=== PATIENT | female | born 1975 | race Caucasian/White ===

== ENCOUNTER 2023-01-22 08:28 | Outpatient (CLI) | payer SELFPAY ==
[2023-01-22 08:49] LABS: BASOPHILS % (AUTO) 0.3 %; EOSINOPHILS # (AUTO) 0.3 10^3/uL (0.0-0.7); EOSINOPHILS % (AUTO) 5.2 %; HCT - HEMATOCRIT 39.4 % (37.0-47.0); HGB - HEMOGLOBIN 12.6 g/dL (12.0-16.0); LYMPHOCYTES # (AUTO) 1.2 10^3/uL (1.5-3.5); LYMPHOCYTES % (AUTO) 19.3 %; MEAN CORPUSCULAR HEMOGLOBIN 29.2 pg (27.0-31.0); MEAN CORPUSCULAR VOLUME 91.2 fL (81.0-99.0); MEAN PLATELET VOLUME 9.6 fL (7.9-10.8); MONOCYTES # (AUTO) 0.5 10^3/uL (0.0-1.0); MONOCYTES % (AUTO) 7.5 %; NEUTROPHILS # (AUTO) 4.3 10^3/uL (1.5-6.6); NEUTROPHILS % (AUTO) 67.4 %; PLT - PLATELET COUNT 255 10^3/uL (130-450); RED BLOOD COUNT 4.32 10^6/uL (4.20-5.40); RED CELL DISTRIBUTION WIDTH 11.9 % (12.0-15.0); WHITE BLOOD COUNT 6.4 x10^3/uL (4.8-10.8)
[2023-01-22 09:17] LABS: ALBUMIN 3.7 g/dL (3.2-5.5); ALBUMIN/GLOBULIN RATIO 0.9 (1.0-2.2); BILIRUBIN,TOTAL 0.7 mg/dL (0.2-1.0); CALCIUM 8.5 mg/dL (8.5-10.3); CREATININE 0.6 mg/dL (0.4-1.0); POTASSIUM 3.9 mmol/L (3.5-5.0); TOTAL PROTEIN 7.9 g/dL (6.7-8.2)
[2023-01-22 09:28] LABS: THYROID STIMULATING HORMONE < 0.08 uIU/mL (0.34-5.60)
[2023-01-22 09:31] LABS: FREE T4 (FREE THYROXINE) 1.38 ng/dL (0.58-1.64)
[2023-01-22 09:35] LABS: FERRITIN 103.4 ng/mL (11.0-306.8)
[2023-01-22 10:11] LABS: ESTIMATED AVERAGE GLUCOSE 151 mg/dL (70-100); HEMOGLOBIN A1c% 6.9 % (4.27-6.07)
[2023-01-24 11:10] LABS: HDL-P (TOTAL) 31.6 umol/L (>=30.5); LDL SIZE 20.9 nm (>20.5); LDL-P 787 nmol/L (<1000); LP-INSULIN RESISTANCE SCORE 36 (<=45); SMALL LDL-P 483 nmol/L (<=527)
== END 2023-01-22 08:29 | disposition home or self-care (01) ==
LOC: LAB 08:28
PROVIDERS: ATTEND Surgery
DX: I10 Essential (primary) hypertension (principal); E06.3 Autoimmune thyroiditis; E11.9 Type 2 diabetes mellitus without complications; K76.0 Fatty (change of) liver, not elsewhere classified; E78.5 Hyperlipidemia, unspecified; Z79.51 Long term (current) use of inhaled steroids; E03.9 Hypothyroidism, unspecified; F32.A Depression, unspecified; Z85.850 Personal history of malignant neoplasm of thyroid
CPT/HCPCS: 36415; 80053; 82306; 82607; 82728; 83036; 83525; 83540; 83704; 84439; 84443; 84466; 85025

== ENCOUNTER 2023-02-19 16:49 | Emergency (ER) | payer BC ==
[2023-02-19 17:35] LABS: BASOPHILS % (AUTO) 0.4 %; EOSINOPHILS # (AUTO) 0.3 10^3/uL (0.0-0.7); EOSINOPHILS % (AUTO) 4.5 %; HCT - HEMATOCRIT 37.5 % (37.0-47.0); HGB - HEMOGLOBIN 12.3 g/dL (12.0-16.0); LYMPHOCYTES # (AUTO) 1.8 10^3/uL (1.5-3.5); MEAN CORPUSCULAR HEMOGLOBIN 29.2 pg (27.0-31.0); MEAN CORPUSCULAR HGB CONC 32.8 g/dL (32.0-36.0); MEAN CORPUSCULAR VOLUME 89.1 fL (81.0-99.0); MEAN PLATELET VOLUME 9.5 fL (7.9-10.8); MONOCYTES # (AUTO) 0.6 10^3/uL (0.0-1.0); MONOCYTES % (AUTO) 7.4 %; NEUTROPHILS # (AUTO) 4.9 10^3/uL (1.5-6.6); NEUTROPHILS % (AUTO) 64.4 %; PLT - PLATELET COUNT 299 10^3/uL (130-450); RED BLOOD COUNT 4.21 10^6/uL (4.20-5.40); WHITE BLOOD COUNT 7.6 x10^3/uL (4.8-10.8)
--- NOTE | 2023-02-19 17:39 | ED Physician Documentation ---
History of Present Illness - Stated complaint Stated Complaint: SOA - Chief complaint Chief Complaint: Cardiac - Additonal information Additional information: 47-year-old female was referred to the emergency department for evaluation of shortness of air that has gotten worse over the last 3 to 4 days. Is mainly exertional. She does not feel short of air at rest. She has no chest pain. The patient reports she has a longstanding history of hypertension and as well as well-controlled diabetes. She was diagnosed with some mild congestive heart failure in 2019. At this time she lived in [place] and was seen by a corral boss. Reportedly underwent echocardiogram and stress testing that she reports to me was normal. Patient is currently taking lisinopril, metoprolol and 25 mg of hydrochlorothiazide daily for her heart failure. She states that when she was diagnosed with heart failure in the past initiation of hydrochlorothiazide helped. Patient is morbidly obese but has no new leg swelling. No changes in urinary output. No recent cough or fevers. No hemoptysis. No recent travel, surgery or immobilizations. Patient is a remote former smoker having quit about 16 years ago. Denies a history of COPD Review of Systems Constitutional: denies: Fever, Chills Cardiac: denies: Chest pain / pressure, Palpitations Respiratory: reports: Dyspnea. denies: Cough, Hemoptysis, Wheezing GI: reports: Reviewed and negative : reports: Reviewed and negative PD PAST MEDICAL HISTORY - Present Medications Home Medications: Ambulatory Orders Medication Instructions Recorded Confirmed Furosemide [Lasix] 20 mg PO DAILY 7 Days #7 tablet 02/19/23 Potassium Chloride [K-Dur] 20 meq PO DAILY 7 Days #7 tablet 02/19/23 - Allergies Allergies/Adverse Reactions: Allergies Allergy/AdvReac Type Severity Reaction Status Date / Time No Known Drug Allergies Allergy Verified 02/19/23 16:56 PD ED PE NORMAL - General General: Alert and oriented X 3, No acute distress, Well developed/nourished (Morbidly obese) - HEENT HEENT: Atraumatic - Neck Neck: Supple, no meningeal sign, No adenopathy - Cardiac Cardiac: RRR, No murmur - Respiratory Respiratory: No respiratory distress, Clear bilaterally - Abdomen Abdomen: Normal bowel sounds, Soft - Derm Derm: Normal color, Warm and dry, No rash - Extremities Extremities: No deformity, No tenderness to palpate, Normal ROM s pain - Neuro Neuro: Alert and oriented X 3, science professor 2-12 intact Eye Opening: Spontaneous Motor: Obeys Commands Verbal: Oriented GCS Score: 15 Results - Vitals Vitals: Vital Signs - 24 hr 02/19/23 16:56 Temperature 36.5 C Heart Rate 83 Respiratory 18 Rate Blood Pressure 150/83 H O2 Saturation 100 Oxygen O2 Source Room air - EKG (time done) 1725 EKG releavant findings:: EKG personally interpreted by author of this note. Relevant findings are: Rate: Rate (enter#) (83) Rhythm: NSR [place]: Normal Intervals: Normal MS QRS: Normal Ischemia: Normal ST segments Compare to prior EKG: Old EKG unavailable Computer interpretation: Agree with computer - Labs Labs: Laboratory Tests 02/19/23 02/19/23 02/19/23 17:22 17:22 17:22 WBC 7.6 RBC 4.21 Hgb 12.3 Hct 37.5 MCV 89.1 MCH 29.2 MCHC 32.8 RDW 12.0 Plt Count 299 MPV 9.5 Neut # (Auto) 4.9 Lymph # (Auto) 1.8 [place] # (Auto) 0.6 Eos # (Auto) 0.3 Baso # (Auto) 0.0 Absolute Nucleated RBC 0.00 Nucleated RBC % 0.0 Sodium 135 Potassium 3.4 L Chloride 100 L Carbon Dioxide 26 Anion Gap 9.0 BUN 9 Creatinine 0.6 Estimated GFR (MDRD) 108 Glucose 100 Calcium 8.7 Total Bilirubin 0.6 AST 17 ALT 19 Alkaline Phosphatase 72 B-Natriuretic Peptide 95 Total Protein 7.6 Albumin 3.5 Globulin 4.1 Albumin/Globulin Ratio 0.9 L Lipase 34 - Rads (name of study) cxr Relevant Findings:: Final report received (Pulmonary vascular appears congested. Findings compatible with mild fluid overload/CHF.) PD Medical Decision Making - ED course Complexity details: reviewed results, re-evaluated patient, considered differential, d/w patient ED course: 47-year-old female presents emergency department for evaluation of 3 days shortness of air that is exertional. She denies chest pain. She does have a history of congestive heart failure for which she takes metoprolol, lisinopril and hydrochlorothiazide. She has lived on [facility] now for 1 year but had her heart fully evaluated in [place] in 2019. She reports a normal echo and stress test. She reports to me that she was told her congestive heart failure was due to elevated blood pressures. Here in the emergency department she presents very well-appearing. She is saturating 99% on room air. She does not appear labored. I obtained a EKG which was nonischemic. Showed sinus rhythm. CBC and electrolytes as well as BNP were all essentially unremarkable. Chest x-ray did show findings of volume overload consistent with congestive heart failure. I discussed with the patient that she would likely benefit from some additional diuresis. We we will give her 1 week of oral Lasix as well as some potassium supplementation as an outpatient. I am advising her to have her labs rechecked in 1 week to ensure no worrisome hypokalemia has developed. She will discuss with her primary care doctor the need for referral to cardiology. Clinically patient does not meet the criteria for admission due to the hospital for heart failure given lack of significant findings suggesting extreme volume overload or hypertensive urgency. The usual emergent return precautions were discussed Departure - Departure Disposition: 01 Home, Self Care Clinical Impression: CHF (congestive heart failure) Qualifiers: Heart failure type: unspecified Heart failure chronicity: unspecified Qualified Code(s): I50.9 - Heart failure, unspecified Condition: Stable Record reviewed to determine appropriate education?: Yes Instructions: ED CHF General Prescriptions: Potassium Chloride [K-Dur] 20 meq PO DAILY 7 Days #7 tablet Furosemide [Lasix] 20 mg PO DAILY 7 Days #7 tablet Comments: Yeimy you are seen today in the emergency department because you have had several days of increasing shortness of air especially with ambulation. As discussed at the bedside your EKG did not show any worrisome findings. Your CBC and electrolytes were also essentially normal. However your chest x-ray does suggest that you have volume overload or congestive heart failure. You can continue to take your usually prescribed medications. To help with the heart failure and excess volume in your lungs we are going to give you a week of Lasix. You you will take this once a day for the next 7 days. I have also prescribed some potassium which can help reduce the risk of hypokalemia while taking Lasix. I would like you to follow-up with your primary care provider or the walk-in clinic in 1 week for reevaluation and to have your labs reevaluated. It is going to be very important that you obtain a referral to a corral boss for longer-term evaluation and management of your heart failure. Please return immediately to the ER if you find that you are having worsening symptoms, severe shortness of air, chest pain or fevers
[2023-02-19 17:47] LABS: ALBUMIN 3.5 g/dL (3.2-5.5); ALBUMIN/GLOBULIN RATIO 0.9 (1.0-2.2); BILIRUBIN,TOTAL 0.6 mg/dL (0.2-1.0); CALCIUM 8.7 mg/dL (8.5-10.3); CREATININE 0.6 mg/dL (0.4-1.0); POTASSIUM 3.4 mmol/L (3.5-5.0); TOTAL PROTEIN 7.6 g/dL (6.7-8.2)
--- NOTE | 2023-02-19 18:20 | XRAY Report ---
PROCEDURE: Chest 1 View X-Ray INDICATIONS: Chest Pain TECHNIQUE: One view of the chest was acquired. COMPARISON: None. FINDINGS: Surgical changes and devices: None. Lungs and pleura: No consolidation, pleural effusion, or pneumothorax. Pulmonary vasculature appears congested. Mediastinum: Cardiac silhouette is enlarged. Bones and chest wall: No suspicious bony lesions. Overlying soft tissues appear unremarkable. IMPRESSION: Findings compatible with mild fluid overload/CHF. Reviewed by: Dejon eLw MD on 02/19/2023 6:19 PM PDT Approved by: Dejon Lew MD on 02/19/2023 6:19 PM PDT Station ID: [id number]
[2023-02-19] MEDS ORDERED: FUROSEMIDE 20 MG TABLET PO STA (18:34)
[2023-02-19 18:53] VITALS: BP 207/104
== END 2023-02-19 18:53 | disposition home or self-care (01) ==
LOC: ED 16:49
DX: I11.0 Hypertensive heart disease with heart failure (principal); I50.9 Heart failure, unspecified; E11.9 Type 2 diabetes mellitus without complications; E66.01 Morbid (severe) obesity due to excess calories; Z87.891 Personal history of nicotine dependence; Z79.899 Other long term (current) drug therapy
CPT/HCPCS: 36415; 71045; 80053; 83690; 83880; 85025; 93005; 99284; A9270

== ENCOUNTER 2023-05-09 10:49 | Outpatient (CLI) | payer BC ==
[2023-05-09 11:01] LABS: BASOPHILS % (AUTO) 0.6 %; EOSINOPHILS # (AUTO) 0.4 10^3/uL (0.0-0.7); EOSINOPHILS % (AUTO) 4.8 %; HGB - HEMOGLOBIN 13.7 g/dL (12.0-16.0); LYMPHOCYTES # (AUTO) 1.7 10^3/uL (1.5-3.5); LYMPHOCYTES % (AUTO) 23.4 %; MEAN CORPUSCULAR HEMOGLOBIN 28.8 pg (27.0-31.0); MEAN CORPUSCULAR HGB CONC 32.6 g/dL (32.0-36.0); MEAN CORPUSCULAR VOLUME 88.4 fL (81.0-99.0); MEAN PLATELET VOLUME 9.4 fL (7.9-10.8); MONOCYTES # (AUTO) 0.5 10^3/uL (0.0-1.0); MONOCYTES % (AUTO) 7.3 %; NEUTROPHILS # (AUTO) 4.6 10^3/uL (1.5-6.6); NEUTROPHILS % (AUTO) 63.6 %; PLT - PLATELET COUNT 281 10^3/uL (130-450); RED BLOOD COUNT 4.75 10^6/uL (4.20-5.40); RED CELL DISTRIBUTION WIDTH 12.6 % (12.0-15.0); WHITE BLOOD COUNT 7.3 x10^3/uL (4.8-10.8)
[2023-05-09 11:19] LABS: ALBUMIN 3.6 g/dL (3.2-5.5); ALBUMIN/GLOBULIN RATIO 0.9 (1.0-2.2); ALKALINE PHOSPHATASE 86 IU/L (42-121); ALT ALANINE AMINOTRANSFERASE 17 IU/L (10-60); AST ASPARTATE AMINOTRANSFERASE 19 IU/L (10-42); BILIRUBIN,TOTAL 0.8 mg/dL (0.2-1.0); BUN - BLOOD UREA NITROGEN 8 mg/dL (6-20); CALCIUM 8.5 mg/dL (8.5-10.3); CARBON DIOXIDE - CO2 27 mmol/L (21-32); CHLORIDE 102 mmol/L (101-111); CHOL/HDL RATIO 2.9 (<4.4); CHOLESTEROL 178 mg/dL; CREATININE 0.7 mg/dL (0.4-1.0); GFR - MDRD 90 (>89); GLUCOSE 103 mg/dL (70-100); HDL CHOLESTEROL 61 mg/dL; LDL CHOLESTEROL,CALCULATED 92 mg/dL; LDL/HDL RATIO 1.5 (<4.4); POTASSIUM 3.8 mmol/L (3.5-5.0); SODIUM 137 mmol/L (135-145); TOTAL PROTEIN 7.6 g/dL (6.7-8.2); TRIGLYCERIDES 126 mg/dL; VLDL CHOLESTEROL 25 mg/dL
[2023-05-09 11:36] LABS: THYROID STIMULATING HORMONE < 0.08 uIU/mL (0.34-5.60)
[2023-05-09 11:38] LABS: FREE T4 (FREE THYROXINE) 0.86 ng/dL (0.58-1.64)
[2023-05-09 11:45] LABS: ESTIMATED AVERAGE GLUCOSE 123 mg/dL (70-100); HEMOGLOBIN A1c% 5.9 % (4.27-6.07)
== END 2023-05-09 10:50 | disposition home or self-care (01) ==
LOC: LAB 10:49
PROVIDERS: ATTEND Nurse Practitioner
DX: I10 Essential (primary) hypertension (principal); Z13.220 Encounter for screening for lipoid disorders; E03.9 Hypothyroidism, unspecified; E11.9 Type 2 diabetes mellitus without complications
CPT/HCPCS: 36415; 80053; 80061; 83036; 83721; 84439; 84443; 85025

== ENCOUNTER 2023-06-20 11:08 | Emergency (ER) | payer BC ==
[2023-06-20 11:43] LABS: BASOPHILS # (AUTO) 0.1 10^3/uL (0.0-0.1); BASOPHILS % (AUTO) 0.7 %; EOSINOPHILS # (AUTO) 0.4 10^3/uL (0.0-0.7); EOSINOPHILS % (AUTO) 4.2 %; HGB - HEMOGLOBIN 15.6 g/dL (12.0-16.0); LYMPHOCYTES # (AUTO) 1.6 10^3/uL (1.5-3.5); LYMPHOCYTES % (AUTO) 19.5 %; MEAN CORPUSCULAR HEMOGLOBIN 28.8 pg (27.0-31.0); MEAN CORPUSCULAR HGB CONC 33.2 g/dL (32.0-36.0); MEAN CORPUSCULAR VOLUME 86.9 fL (81.0-99.0); MEAN PLATELET VOLUME 9.4 fL (7.9-10.8); MONOCYTES # (AUTO) 0.5 10^3/uL (0.0-1.0); MONOCYTES % (AUTO) 6.4 %; NEUTROPHILS # (AUTO) 5.7 10^3/uL (1.5-6.6); PLT - PLATELET COUNT 331 10^3/uL (130-450); RED BLOOD COUNT 5.41 10^6/uL (4.20-5.40); RED CELL DISTRIBUTION WIDTH 12.6 % (12.0-15.0); WHITE BLOOD COUNT 8.3 x10^3/uL (4.8-10.8)
[2023-06-20] MEDS ORDERED: SODIUM CHLORIDE 0.9% 1,000 ML IV STA (11:58)
[2023-06-20] MEDS ORDERED: ONDANSETRON 4 MG/2 ML VIAL IVP STA (11:58)
[2023-06-20 11:59] LABS: ALBUMIN 4.8 g/dL (3.2-5.5); ALBUMIN/GLOBULIN RATIO 1.2 (1.0-2.2); BILIRUBIN,TOTAL 1.4 mg/dL (0.2-1.0); CALCIUM 9.2 mg/dL (8.5-10.3); CREATININE 0.7 mg/dL (0.4-1.0); POTASSIUM 3.4 mmol/L (3.5-5.0); TOTAL PROTEIN 8.8 g/dL (6.7-8.2)
--- NOTE | 2023-06-20 12:15 | ED Physician Documentation ---
PD HPI ABD PAIN - Stated complaint Stated Complaint: NAUSEA,DIZZY,VOMIT - Chief complaint Chief Complaint: General - History obtained from History obtained from: Patient - Additional information Additional information: Patient is a 47-year-old female with a history of diabetes, hypertension, hyperlipidemia presenting for evaluation of feeling lightheaded with standing as well as diarrhea and right-sided abdominal pain since yesterday. Patient reports 4-5 episodes of loose stools yesterday and 2 today. No blood in her stools. No recent travel or antibiotic use. Patient also reports an episode of emesis yesterday that was bilious in content. She has had her gallbladder out previously. Today at work she reports having continued pain and has not had any oral intake. She also reports having cramping sensation to the upper abdomen as well as the right side of her abdomen. No fevers. No chest pain or shortness of air. Denies dysuria or concerns for . Review of Systems Constitutional: denies: Fever Cardiac: denies: Chest pain / pressure Respiratory: denies: Dyspnea GI: reports: Abdominal Pain, Nausea, Vomiting, Diarrhea. denies: Bloody / black stool : denies: Dysuria Musculoskeletal: denies: Back pain Neurologic: denies: Headache PD PAST MEDICAL HISTORY - Present Medications Home Medications: Ambulatory Orders Medication Instructions Recorded Confirmed Furosemide [Lasix] 20 mg PO DAILY 7 Days #7 tablet 02/19/23 06/20/23 Potassium Chloride [K-Dur] 20 meq PO DAILY 7 Days #7 tablet 02/19/23 06/20/23 Albuterol Sulfate [Proair 1 - 2 puffs IH Q4HR PRN 06/20/23 06/20/23 Respiclick] Atorvastatin Calcium 40 mg PO DAILY 06/20/23 06/20/23 Dapagliflozin Propanediol [Farxiga] 10 mg PO DAILY 06/20/23 06/20/23 Escitalopram Oxalate 20 mg PO DAILY 06/20/23 06/20/23 Levothyroxine Sodium [Synthroid] 300 mcg PO DAILY 06/20/23 06/20/23 Liothyronine [Cytomel] 25 mcg PO BID 06/20/23 06/20/23 Metoprolol Succinate [Toprol Xl] 25 mg PO DAILY 06/20/23 06/20/23 Tirzepatide [Mounjaro] 7.5 mg SQ .WEEKLY 06/20/23 06/20/23 hydroCHLOROthiazide [Hydrodiuril] 25 mg PO DAILY 06/20/23 06/20/23 lisinopriL [Lisinopril] 20 mg PO DAILY 06/20/23 06/20/23 metFORMIN [Glucophage] 500 mg PO DAILY 06/20/23 06/20/23 - Allergies Allergies/Adverse Reactions: Allergies Allergy/AdvReac Type Severity Reaction Status Date / Time No Known Drug Allergies Allergy Verified 06/20/23 11:17 PD ED PE NORMAL - General General: Alert and oriented X 3, No acute distress, Well developed/nourished - HEENT HEENT: Atraumatic - Neck Neck: Supple, no meningeal sign - Cardiac Cardiac: RRR, No murmur - Respiratory Respiratory: No respiratory distress, Clear bilaterally - Abdomen Abdomen: Normal bowel sounds, Soft, Non distended, Other (Epigastric and right lower abdominal tenderness to palpation) - Derm Derm: Warm and dry - Neuro Neuro: Normal speech Results - Vitals Vitals: Vital Signs - 24 hr 06/20/23 06/20/23 11:14 13:36 Temperature 36 C L Heart Rate 73 65 Respiratory 16 24 Rate Blood Pressure 181/95 H 159/79 H O2 Saturation 97 100 Oxygen O2 Source Room air - EKG (time done) 1203 EKG releavant findings:: EKG personally interpreted by author of this note. Relevant findings are: Rate 66, normal sinus rhythm, no STEMI, no ST depressions Rate: Rate (enter#) (66) Rhythm: NSR Ischemia: No: ST elevation c/w ischemia - Labs Labs: Laboratory Tests 06/20/23 06/20/23 06/20/23 11:38 11:38 12:24 WBC 8.3 RBC 5.41 H Hgb 15.6 Hct 47.0 MCV 86.9 MCH 28.8 MCHC 33.2 RDW 12.6 Plt Count 331 MPV 9.4 Neut # (Auto) 5.7 Lymph # (Auto) 1.6 [place] # (Auto) 0.5 Eos # (Auto) 0.4 Baso # (Auto) 0.1 Absolute Nucleated RBC 0.00 Nucleated RBC % 0.0 Sodium 136 Potassium 3.4 L Chloride 103 Carbon Dioxide 22 Anion Gap 11.0 BUN 11 Creatinine 0.7 Estimated GFR (MDRD) 90 Glucose 124 H Calcium 9.2 Total Bilirubin 1.4 H AST 28 ALT 28 Alkaline Phosphatase 104 Total Protein 8.8 H Albumin 4.8 Globulin 4.0 Albumin/Globulin Ratio 1.2 Lipase 33 Urine Color DARK YELLOW Urine Clarity HAZY Urine pH 5.5 Ur Specific [place] >=1.030 H Urine Protein NEGATIVE Urine Glucose (UA) >=1000 H Urine Ketones NEGATIVE Urine Occult Blood MODERATE H Urine Nitrite NEGATIVE Urine Bilirubin NEGATIVE Urine Urobilinogen 0.2 (NORMAL) Ur Leukocyte Esterase NEGATIVE Urine RBC 6-10 H Urine WBC 0-3 Ur Squamous Epith Cells MOD Squamous H Urine Bacteria Few Urine Mucus Few Strands Ur Microscopic Review INDICATED Urine Culture Comments NOT INDICATED Urine HCG, Qual NEGATIVE PD Medical Decision Making - ED course Complexity details: reviewed results, re-evaluated patient, d/w patient ED course: Patient is a 47-year-old female presenting for evaluation of abdominal pain with diarrhea and 1 episode of emesis yesterday. She reports feeling lightheaded with standing. EKG is reviewed and nonischemic. Patient does have right-sided abdominal tenderness here. Has had a prior cholecystectomy. CBC, chemistries and urine analysis were obtained and reviewed. CT of the abdomen pelvis was obtained and official read is pending. Patient signed out to oncoming provider at shift change. 1449 - Patient is resting comfortably states her symptoms are improving with IV fluids and Zofran. Reviewed lab results. CT read is pending. Departure - Departure Forms: PCP List
[2023-06-20 12:27] LABS: BILIRUBIN,URINE NEGATIVE (NEGATIVE); CLARITY,URINE HAZY (CLEAR); GLUCOSE, URINE (UA) >=1000 mg/dL (NEGATIVE); KETONES,URINE (UA) NEGATIVE (NEGATIVE); LEUKOCYTE ESTERASE, URINE NEGATIVE (NEGATIVE); NITRITE,URINE NEGATIVE (NEGATIVE); OCCULT BLOOD,URINE MODERATE (NEGATIVE); PH,URINE 5.5 PH (5.0-7.5); PROTEIN,URINE NEGATIVE (NEGATIVE); UROBILINOGEN,URINE 0.2 (NORMAL) E.U./dL (NORMAL)
[2023-06-20 12:29] LABS: HCG UR QUAL NEGATIVE
[2023-06-20 12:32] LABS: BACTERIA,URINE Few /HPF (None Seen); MUCUS,URINE Few Strands; SQUAMOUS EPITHELIAL CELL,UR MOD Squamous (<= Few); WBC,URINE 0-3 /HPF (0-5)
[2023-06-20 13:45] VITALS: O2SAT 100
[2023-06-20 15:03] VITALS: BP 146/76
--- NOTE | 2023-06-20 15:09 | CT Report ---
PROCEDURE: ABDOMEN/PELVIS W INDICATIONS: R sided pain CONTRAST: 100mL Omni 300 TECHNIQUE: After the administration of intravenous contrast, 5 mm thick sections acquired from the diaphragms to the symphysis. 5 mm thick coronal and sagittal reformats were acquired. For radiation dose reducti on, the following was used: automated exposure control, adjustment of mA and/or kV according to john ent size. COMPARISON: None FINDINGS: Image quality: Excellent. Lung bases and heart: Unremarkable. Liver: No solid mass. Gallbladder and biliary tree: Surgically absent. No biliary dilation, accounting for post-cholecystec faustino state. Spleen: No splenomegaly. Pancreas: No pancreatic ductal dilation. Adrenals: No adrenal nodule. Kidneys and ureters: No hydronephrosis. No renal cystic lesion which requires follow up. No solid mas s. Bowel and peritoneum: No bowel distension. No pathologic free fluid. Normal appendix. Lymph nodes: No central or retroperitoneal adenopathy. Vessels: No infrarenal aortic aneurysm. PELVIS Reproductive organs: Intrauterine device in place. Bladder: No abnormal wall thickening, accounting for underdistension. Pelvic lymph nodes: No pelvic adenopathy by size criteria. Bones: No aggressive osseous abnormality. Mild degenerative changes of the spine. Other: No significant ventral or inguinal hernia. IMPRESSION: No acute intra-abdominal abnormalities. No findings to explain patient's symptoms. Reviewed by: Ron Antony MD on 06/20/2023 3:08 PM PDT Approved by: Ron Antony MD on 06/20/2023 3:08 PM PDT Station ID: [id number]
--- NOTE | 2023-06-20 15:17 | ED Physician Documentation ---
ED Addendum - Addendum Addendum: 06/20/23 15:17 Signout to me from Dr. Hummel at shift change pending CT read. CT was done and read by Dr. Antony as unremarkable. Patient seen and examined at bedside. Briefly 1 day of abdominal pain with vomiting and diarrhea. No fevers. Benign exam. CBC unremarkable. CMP showing mild hyperglycemia and very modest elevation of bilirubin, urinalysis with some blood and concentrated. Here in the department she had been given Zofran and IV fluids and was feeling better. Discharged home Condition: Stable Diagnosis: 1. Abdominal pain 2. Gastroenteritis Prescription: Zofran 4 mg p.o. every 6 hours as needed nausea #10 no refills E prescribed.
[2023-06-20] MEDS ORDERED: iohexoL-300 100 ML VIAL IVP ONE (15:35)
== END 2023-06-20 15:26 | disposition home or self-care (01) ==
LOC: ED 11:08
DX: K52.9 Noninfective gastroenteritis and colitis, unspecified (principal); E11.65 Type 2 diabetes mellitus with hyperglycemia; Z79.84 Long term (current) use of oral hypoglycemic drugs; E80.7 Disorder of bilirubin metabolism, unspecified; R31.9 Hematuria, unspecified
CPT/HCPCS: 36415; 74177; 80053; 81001; 81025; 83690; 85025; 93005; 96374; 99284; Q9967; 81003; 87086

== ENCOUNTER 2023-07-24 15:18 | Outpatient (CLI) | payer BC ==
--- NOTE | 2023-07-24 16:19 | Sleep Patient Instructions ---
Sleep Center Visit Summary - Patient Visit Information Reason for Visit: Initial consultation for PAP therapy - Patient Instructions Instructions Attached: Sleep Study, Sleep Clinic Visit, Sleep Study Home Monitor Additional Instructions: You will be completing a sleep study, either an in-lab polysomnography (PSG) or home sleep study (HST). You will follow-up in the sleep care office after the sleep study is completed to hear the results and talk about therapy, if needed. You will be called by our office staff to schedule this appointment, but you may contact us with any questions. - Clinic Information Contact: [facility] [address] [place] [address] [email or web address] T: [phone]
--- NOTE | 2023-07-24 16:30 | SLEEP CARE CONSULTATION ---
Information from patient questionnaire entered by Regine Geller. I have reviewed and concur with the information entered by Regine Geller. This document represents the service I personally performed and the decisions made by me, Becky Greer ARNP. History of Present Illness Service Date and Time: 07/24/2023 1518 Reason for Visit: New patient, Previously diagnosed sleep apnea Chief Complaint: reports: Other (UPDATE SLEEP MACHINE, NEW SLEEP TEST) Date of Onset: 12 yrs Usual bedtime: 9-10PM Time it takes to fall asleep: IMMEDIATE Snores at night: No Observed to quit breathing while asleep: No Sleeps alone due to snoring: No Number of times waking at night: 0 Toss, Turn, or Twitch while sleeping: Yes Recalls having dreams: No Usually gets out of bed at: 615AM Feels refreshed in the morning: Yes Morning headache: Yes Sleepy or fatigued during the day: No Ever fallen asleep while driving: No Takes day naps: No Dreams during day naps: No Prior sleep studies: Yes Additional HPI information: PARAM FREGOSO was previously diagnosed to have unknown, AHI unknown, sleep apnea-hypopnea syndrome and comes in today to establish care for BIPAP therapy. - Parasomnia Symptoms Ever been unable to move upon waking from sleep: No Walks in sleep: No Talks in sleep: Yes Ever acted out dreams in sleep: Yes Ever felt weak in the knees when startled or emotional: Yes Bothered by creepy, crawly, restless sensations in legs: No Problems with memory or concentration: Yes CPAP Compliance Data - Data Reviewed with Patient Average duration of nightly device use: 8.1 hours Current pressure setting (cmH2O): 21/ Average residual AHI: 2.7 (30 day average) Compliance data discussion: She states she wears her BIPAP "religiously" every night. She has a [employer] BIPAP machine that she got around 2018. She is not getting regular supplies. She is using a full face mask, AirTouch F20, medium cushion. Subjective Patient concerns: reports: other (skin will break out from mask). denies: aerophagia, mask discomfort, air blowing in eyes, mask leak noise, condensation in mask/hose, nasal congestion, dry mouth, nose, throat, epistaxis Observed to snore while using device: No Current pressure setting perceived as: comfortable On therapy, patient: reports: sleeping better, awakening more refreshed, being more awake and alert during the day, more rested overall. 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 Patient is Single and lives in . Have you smoked in the past 12 months: No Quit date: 2005 Alcohol use: Yes Alcohol amount and frequency: 2-3 WEEK Caffeine use: Yes Caffeine amount and frequency: 2-3 DAY Family History Family history of sleep disordered breathing: No Allergies and Home Medications Known drug allergies: No Drug allergies reviewed: Yes Home medication list reviewed: Yes Allergy and home medication list: Allergies No Known Drug Allergies Allergy (Verified 07/23/23 14:47) Home Medications Medication Instructions Recorded Confirmed Last Taken Type Atorvastatin Calcium 40 mg PO DAILY 06/20/23 07/24/23 Unknown History Dapagliflozin Propanediol [Farxiga] 10 mg PO DAILY 06/20/23 07/24/23 Unknown History Escitalopram Oxalate 20 mg PO DAILY 06/20/23 07/24/23 Unknown History Levothyroxine Sodium [Synthroid] 300 mcg PO DAILY 06/20/23 07/24/23 Unknown History Liothyronine [Cytomel] 25 mcg PO BID 06/20/23 07/24/23 Unknown History Metoprolol Succinate [Toprol Xl] 25 mg PO DAILY 06/20/23 07/24/23 Unknown History Tirzepatide [Mounjaro] 7.5 mg SQ .WEEKLY 06/20/23 07/24/23 Unknown History hydroCHLOROthiazide [Hydrodiuril] 25 mg PO DAILY 06/20/23 07/24/23 Unknown History lisinopriL [Lisinopril] 20 mg PO DAILY 06/20/23 07/24/23 Unknown History metFORMIN [Glucophage] 500 mg PO DAILY 06/20/23 07/24/23 Unknown History Cyanocobalamin (Vitamin B-12) See Rx Instructions .ROUTE .COMPLEX 07/24/23 07/24/23 Unknown History [Vitamin B12] Review of Systems Weight gain over past 5 years: 80 Weight loss over past 5 years: 33 in the last 5 months Cardiovascular: reports: high blood pressure, leg or foot swelling Respiratory: reports: shortness of breath, wheeze Gastrointestinal: denies: heartburn Neurological: reports: headaches. denies: head trauma Psychiatric: reports: anxiety, depression Ear/Nose/Throat: reports: nasal congestion, sinus problems, dry mouth/throat, wisdom teeth removed. denies: tonsillectomy Endocrine: reports: thyroid disease Musculoskeletal: reports: joint pain, neck pain Immunologic: reports: itching, allergies to food or environment Physical Exam Vital signs obtained and entered by: REGINE Aragon MA Blood Pressure: 149/83 (LEFT ) Cuff size: wrist Heart Rate: 71 O2 Saturation: 99 Height: 5 ft 2 in Weight: 334 lb 6.4 oz Body Mass Index: 61.1 BMI Classification: Morbidly Obese Neck circumference: 16.5 Heart: regular rate and rhythm Lungs: clear bilaterally Impression and Plan 1. Obstructive Sleep Apnea-Hypopnea Syndrome, unknown, with unknown treatment compliance and good apnea control. On BIPAP therapy, the patient has better sleep quality and is more rested overall. Patient has a [employer] BiPAP that she has had since 2017. She states is still working but she has not received a replacement from [email or web address]. She has known about the recall but never got any information about her device. She has checked it regularly but noted no black debris in the machine or any other upper respiratory symptoms. She states she cannot sleep without her BiPAP. She is not able to get supplies right now. She needs a new DME supplier. She does not have a copy of her last sleep study and so far I have been unable to obtain a replacement. She has also lost over 30 pounds. I would like to have her do a sleep study so we can verify her diagnosis and severity. Once we have her results, we can order her a new BIPAP and set her up with a new DME supplier. She voiced understanding and agreement with this plan of care. Patient's apnea severity and rationale for treatment to reduce apnea, improve sleep quality and reduce cardiovascular and cerebrov ascular events was reviewed. I also reviewed the benefit of consistent device use of BIPAP for hypertension, cardiac disease, diabetes and depression. 2. Obesity, unspecified. Currently patients BMI is 61.1. She has lost weight in last 5 months. Obesity increases the risk of apnea, BIPAP pressure requirements and overall health risks especially cardiovascular and diabetes. Thus patient is advised to continue to try to lose weight. * Continue BIPAP pressure at 21/16 cmH2O * Verifying PSG/HST for sleep apnea * Notify me if snoring with mask or feeling that the pressure is too much or too little * Continue to try to lose weight * Call this office if any problems using CPAP * Return for follow up after sleep study, or sooner if concerns arise Counseling Topics: Spare mask, Weight loss health impact Follow up with Sleep Care in: other (after sleep study) Plan: PSG/HST to verify diagnosis and severity Visit Type: In Office Time Spent with Patient (minutes): 33 Provider Statement: I spent 100% of the Face to Face Visit with the patient with greater than 50% spent counseling the patient and coordination of care.
[2023-07-24 16:46] VITALS: BP 149/83; O2SAT 99
== END 2023-07-24 15:19 | disposition home or self-care (01) ==
LOC: SC 15:18
PROVIDERS: ATTEND Nurse Practitioner Family
DX: G47.33 Obstructive sleep apnea (adult) (pediatric) (principal); E11.9 Type 2 diabetes mellitus without complications; F32.A Depression, unspecified; I11.0 Hypertensive heart disease with heart failure; I50.9 Heart failure, unspecified; E66.01 Morbid (severe) obesity due to excess calories; Z68.44 Body mass index [BMI] 60.0-69.9, adult
CPT/HCPCS: 99203; 99212

== ENCOUNTER 2023-08-13 09:21 | Outpatient (CLI) | payer BC | END 2023-08-13 09:22 | disposition home or self-care (01) | LOC: SC 09:21 | PROVIDERS: ATTEND Nurse Practitioner Family | DX: G47.33 Obstructive sleep apnea (adult) (pediatric) (principal); I11.9 Hypertensive heart disease without heart failure; E11.9 Type 2 diabetes mellitus without complications; F32.A Depression, unspecified; R09.02 Hypoxemia | CPT/HCPCS: 95806 ==

== ENCOUNTER 2023-11-19 09:01 | Outpatient (CLI) | payer BC ==
[2023-11-19 09:27] LABS: ESTIMATED AVERAGE GLUCOSE 128 mg/dL (70-100); HEMOGLOBIN A1c% 6.1 % (4.27-6.07)
[2023-11-19 09:40] LABS: CREATININE,URINE 80.7 mg/dL
[2023-11-19 09:42] LABS: THYROID STIMULATING HORMONE < 0.01 uIU/mL (0.34-5.60)
[2023-11-19 10:03] LABS: MICROALBUMIN,URINE < 0.7 mg/dL
== END 2023-11-19 09:02 | disposition home or self-care (01) ==
LOC: LAB 09:01
PROVIDERS: ATTEND Nurse Practitioner
DX: E11.9 Type 2 diabetes mellitus without complications (principal); Z51.81 Encounter for therapeutic drug level monitoring; E03.9 Hypothyroidism, unspecified; Z79.899 Other long term (current) drug therapy
CPT/HCPCS: 36415; 82043; 82570; 83036; 84439; 84443; 84481

== ENCOUNTER 2023-12-13 14:24 | Outpatient (CLI) | payer BC ==
--- NOTE | 2023-12-20 09:14 | Mammography Report ---
BILATERAL DIGITAL SCREENING MAMMOGRAM 3D/2D: 12/13/2023 CLINICAL: Routine screening. Comparison is made to exams dated: 10/12/2021 mammogram, 06/05/2018 mammogram, 05/22/2017 mammogram, 10/10/2016 mammogram, and 04/27/2016 mammogram - [facility]. There are scattered areas of fibroglandular density in both breasts (category b / 25%-50% glandular t issue). No significant masses, calcifications, or other findings are seen in either breast. There has been no significant interval change. IMPRESSION: NEGATIVE There is no mammographic evidence of malignancy. A 1 year screening mammogram is recommended. Based on the Tyrer Cuzick model (a risk assessment model) the patient's lifetime risk is 17.3% and he r 10 year risk is 3.6%. According to the ACR, ACS, and NCCN guidelines, an annual breast MRI exam yolie ng with mammogram is recommended if the patient's lifetime risk is 20% or greater. This exam was interpreted at Station ID: [id number]. NOTE: For mammograms, a report in lay terms will be sent to the patient. Approximately 15% of breast malignancies will not be visualized mammographically. In the management of a palpable breast mass, a negative mammogram must not discourage biopsy of a clinically suspicious lesion. Electronically Signed By: Xavier nugent/michelle:12/19/2023 10:22:00 letter sent: No_Letter ACR BI-RADS Category 1: Negative 3341F PARENCHYMAL PATTERN: (A) - The breast(s) demonstrate(s) scattered fibroglandular densities. BI-RADS CATEGORY: (1) - 1 Mammogram [id number] 1 year screening LATERALITY: (B)
== END 2023-12-13 14:25 | disposition home or self-care (01) ==
LOC: DI 14:24
PROVIDERS: ATTEND Obstetrics & Gynecology
DX: Z12.31 Encounter for screening mammogram for malignant neoplasm of breast (principal); R92.323 Mammographic fibroglandular density, bilateral breasts

== ENCOUNTER 2024-02-04 15:12 | Outpatient (CLI) | payer BC | END 2024-02-04 15:13 | disposition home or self-care (01) | LOC: DI 15:12 | PROVIDERS: ATTEND Nurse Practitioner | DX: I50.9 Heart failure, unspecified (principal) | CPT/HCPCS: 93307 ==

== ENCOUNTER 2024-02-21 10:25 | Outpatient (CLI) | payer BC | END 2024-02-21 10:26 | disposition home or self-care (01) | LOC: LAB 10:25 | DX: E06.3 Autoimmune thyroiditis (principal); E03.9 Hypothyroidism, unspecified; E66.01 Morbid (severe) obesity due to excess calories; I10 Essential (primary) hypertension; Z85.850 Personal history of malignant neoplasm of thyroid; E78.5 Hyperlipidemia, unspecified; K76.0 Fatty (change of) liver, not elsewhere classified; E11.9 Type 2 diabetes mellitus without complications; F32.A Depression, unspecified; Z79.3 Long term (current) use of hormonal contraceptives; E53.8 Deficiency of other specified B group vitamins; F41.9 Anxiety disorder, unspecified; Z79.51 Long term (current) use of inhaled steroids | CPT/HCPCS: 36415; 82306; 82607; 83704 ==

== ENCOUNTER 2024-03-04 13:52 | Outpatient (CLI) | payer BC | END 2024-03-04 13:53 | disposition home or self-care (01) | LOC: LAB 13:52 | DX: K90.0 Celiac disease (principal) | CPT/HCPCS: 81599 ==

== ENCOUNTER 2024-03-05 16:08 | Outpatient (CLI) | payer BC ==
--- NOTE | 2024-03-05 19:44 | XRAY Report ---
PROCEDURE: Cervical Spine 4-5V INDICATIONS: NECK PAIN, PARASTHENIA TECHNIQUE: 5 views of the cervical spine acquired. COMPARISON: None. FINDINGS: Bones: No fractures or dislocations to the T1 level. Small vertebral body osteophytes. Oblique image s demonstrate no bony foraminal stenoses. Soft tissues: No prevertebral soft tissue swelling. Clips at the lower neck. IMPRESSION: Mild degenerative changes. Reviewed by: Guille Cochran MD on 03/05/2024 7:43 PM PDT Approved by: Guille Cochran MD on 03/05/2024 7:43 PM PDT Station ID: [id number]
== END 2024-03-05 16:09 | disposition home or self-care (01) ==
LOC: DI 16:08
PROVIDERS: ATTEND Nurse Practitioner
DX: M47.812 Spondylosis without myelopathy or radiculopathy, cervical region (principal)

== ENCOUNTER 2024-03-17 07:01 | Outpatient (CLI) | payer BC ==
--- NOTE | 2024-03-17 09:43 | MRI Report ---
PROCEDURE: Cervical Spine WO INDICATIONS: NECK PAIN TECHNIQUE: Noncontrast sagittal T1 spin echo and T2 fast spin echo, sagittal STIR, foraminal oblique sagittal T2 fast spin echo, and axial gradient echo or T2 fast spin echo through the cervical spine. COMPARISON: None. FINDINGS: Image quality: Excellent. Alignment and Curvature: There is normal bony alignment. Bone Marrow: Marrow demonstrates normal overall signal. Spinal Cord: Visualized spinal cord has normal size and signal. No cerebellar tonsillar herniation. Paraspinous Soft Tissues: No paravertebral masses. Prevertebral soft tissues are normal in thicknes s. C2-C3: No canal stenosis or foraminal stenosis. C3-C4: No canal stenosis or significant foraminal stenosis. C4-C5: Mild left facet hypertrophy. No canal stenosis or foraminal stenosis. C5-C6: Chronic disc height loss. Mild left paracentral disc protrusion mildly indenting on the left ventral cord resulting in mild to moderate narrowing of the left side of the canal. The ventral horn of the left C6 nerve root may be impinged by disc material in the left lateral recess. Reference axia l image 22 series 4. There is no significant foraminal narrowing. C6-C7: Chronic disc height loss. Posterior disc bulge. No central canal stenosis. Mild to moderate l eft foraminal narrowing. C7-T1: No canal stenosis or foraminal stenosis IMPRESSION: 1. At C5-C6, there is mild left paracentral disc protrusion resulting in mild to moderate narrowing o f the left side of the canal and possible impingement on the ventral horn of the left C6 nerve root i n the left lateral recess. 2. No canal stenosis at other levels. No significant foraminal stenosis. Reviewed by: Saeid Arias MD on 03/17/2024 9:42 AM PDT Approved by: Saeid Arias MD on 03/17/2024 9:42 AM PDT Station ID: [id number]
== END 2024-03-17 07:02 | disposition home or self-care (01) ==
LOC: DI 07:01
PROVIDERS: ATTEND Nurse Practitioner
DX: M50.222 Other cervical disc displacement at C5-C6 level (principal)

== ENCOUNTER 2024-04-14 07:58 | Outpatient (CLI) | payer BC, OTHER | END 2024-04-14 23:59 | disposition EMS.NT | LOC: EMS 07:58 | DX: Z04.1 Encounter for examination and observation following transport accident (principal) ==

== ENCOUNTER 2024-04-18 21:04 | Outpatient (CLI) | payer BC ==
--- NOTE | 2024-04-19 06:53 | XRAY Report ---
PROCEDURE: Ribs w/PA Chest 4+V BL INDICATIONS: CONTUSION OF BILATERAL FRONT WALL OF THORAX TECHNIQUE: 2 views of the ribs were acquired, along with a single view chest. COMPARISON: 02/19/2023 FINDINGS: Surgical changes and devices: Upper mediastinal/lower neck clips. Bones and chest wall: No acute displaced fracture or dislocation. Left greater than right advanced s houlder degenerative changes. Lungs and pleura: No dense consolidation or pleural effusion. Mediastinum: Normal heart size IMPRESSION: No acute radiographic abnormality. Radiographs have limited sensitivity for rib fractures and CT is s uggested if there is sufficient clinical concern. Left greater than right partially seen shoulder degenerative changes. Reviewed by: Xavier Leon MD on 04/19/2024 6:51 AM PDT Approved by: Xavier Leon MD on 04/19/2024 6:51 AM PDT Station ID: [id number]
== END 2024-04-18 21:05 | disposition home or self-care (01) ==
LOC: DI 21:04
PROVIDERS: ATTEND Physician Assistant Medical
DX: M19.011 Primary osteoarthritis, right shoulder (principal); M19.012 Primary osteoarthritis, left shoulder

== ENCOUNTER 2024-07-28 08:15 | Outpatient (CLI) | payer BC ==
[2024-07-28 08:35] LABS: BASOPHILS % (AUTO) 0.4 %; EOSINOPHILS # (AUTO) 0.3 10^3/uL (0.0-0.7); EOSINOPHILS % (AUTO) 6.8 %; HCT - HEMATOCRIT 39.4 % (37.0-47.0); HGB - HEMOGLOBIN 12.9 g/dL (12.0-16.0); LYMPHOCYTES # (AUTO) 1.1 10^3/uL (1.5-3.5); LYMPHOCYTES % (AUTO) 23.6 %; MEAN CORPUSCULAR HEMOGLOBIN 29.5 pg (27.0-31.0); MEAN CORPUSCULAR HGB CONC 32.7 g/dL (32.0-36.0); MEAN PLATELET VOLUME 9.8 fL (7.9-10.8); MONOCYTES # (AUTO) 0.4 10^3/uL (0.0-1.0); NEUTROPHILS # (AUTO) 2.9 10^3/uL (1.5-6.6); PLT - PLATELET COUNT 227 10^3/uL (130-450); RED BLOOD COUNT 4.38 10^6/uL (4.20-5.40); RED CELL DISTRIBUTION WIDTH 11.9 % (12.0-15.0); WHITE BLOOD COUNT 4.7 x10^3/uL (4.8-10.8)
[2024-07-28 08:53] LABS: ALBUMIN 4.1 g/dL (3.2-5.5); ALBUMIN/GLOBULIN RATIO 1.6 (1.0-2.2); ALKALINE PHOSPHATASE 79 IU/L (42-121); ALT ALANINE AMINOTRANSFERASE 11 IU/L (10-60); AST ASPARTATE AMINOTRANSFERASE 13 IU/L (10-42); BILIRUBIN,TOTAL 0.7 mg/dL (0.2-1.0); BUN - BLOOD UREA NITROGEN 12 mg/dL (6-20); CALCIUM 9.3 mg/dL (8.5-10.3); CARBON DIOXIDE - CO2 27 mmol/L (21-32); CHLORIDE 106 mmol/L (101-111); CREATININE 0.7 mg/dL (0.6-1.3); GFR - MDRD 90 (>89); GLUCOSE 115 mg/dL (74-104); POTASSIUM 3.8 mmol/L (3.5-4.5); SODIUM 139 mmol/L (135-145); TOTAL PROTEIN 6.7 g/dL (6.4-8.9)
[2024-07-28 08:59] LABS: THYROID STIMULATING HORMONE < 0.01 uIU/mL (0.34-5.60)
[2024-07-28 09:00] LABS: ESTIMATED AVERAGE GLUCOSE 105 mg/dL (70-100); HEMOGLOBIN A1c% 5.3 % (4.27-6.07)
== END 2024-07-28 08:16 | disposition home or self-care (01) ==
LOC: LAB 08:15
PROVIDERS: ATTEND Nurse Practitioner
DX: E03.9 Hypothyroidism, unspecified (principal); I10 Essential (primary) hypertension; E11.9 Type 2 diabetes mellitus without complications
CPT/HCPCS: 36415; 80053; 82043; 82570; 83036; 84439; 84443; 84481; 85025